=== PATIENT | female | born 1925 | race Caucasian/White ===

== ENCOUNTER 2016-08-04 15:32 | Emergency (ER) | payer MEDICARE, OTHER ==
[2016-08-04] MEDS ORDERED: LIDOCAINE 5% PATCH TOP ONE (17:06)
--- NOTE | 2016-08-04 17:06 | Emergency Department Record ---
History of Present Illness - General Chief Complaint: Back Pain/Injury Stated Complaint: BACK PAIN Time Seen by Provider: 08/04/16 16:56 Source: Patient, Family Mode of Arrival: Ambulatory Limitations: No limitations - History of Present Illness Initial Comments: 89 yo female presents with back pain. She has had a chronic history of back pain. She had been on Selah until recently when the Selah prescription was stopped by her PCP due to a concern about given some her family. Her last dose was about one week ago. She had been on them 6 years. She has not had any significant withdrawal symptoms. Her pain is mid back and long standing. No new falls or pains. She will be seeking a new PCP. MD Complaint: Back pain Onset/Timin -: Days(s) Similar Symptoms Previously: No Place: Home Radiation: None Severity scale (1-10): 8 Quality: Aching Consistency: Constant Improves With: None Worsens With: None Context: Unknown Associated Symptoms: Denies other symptoms - Related Data Home Medications Medication Instructions Recorded Confirmed Last Taken Ferrous Sulfate [Iron] 325 mg PO DAILY 08/04/16 08/04/16 Unknown Furosemide [Lasix] 40 mg PO DAILY 08/04/16 08/04/16 Unknown Lisinopril [Zestril] 5 mg PO DAILY 08/04/16 08/04/16 Unknown Potassium Chloride [Klor-Con] 10 meq PO DAILY 08/04/16 08/04/16 Unknown Previous Rx's Medication Instructions Recorded Lidocaine Patch [Lidoderm] 1 ea [facility] Q12H #10 patch 08/04/16 Allergies Allergy/AdvReac Type Severity Reaction Status Date / Time No Known Drug Allergies Allergy Verified 08/04/16 16:53 Travel Screening - Travel/Exposure Within Last 30 Days Have you traveled within the last 30 days?: No Review of Systems Constitutional: Denies: Chills, Fever, Malaise, Weakness Eyes: Denies: Eye discharge ENT: Denies: Congestion, Throat pain Respiratory: Denies: Cough Cardiovascular: Denies: Chest pain, Palpitations, Syncope Endocrine: Denies: Fatigue Gastrointestinal: Denies: Abdominal pain, Diarrhea, Nausea, Vomiting Genitourinary: Denies: Dysuria, Urgency Musculoskeletal: Reports: Arthralgia, Back pain. Denies: Joint swelling, Myalgia, Neck pain Skin: Denies: Bruising, Change in color, Rash Neurological: Denies: Headache Psychiatric: Denies: Anxiety Hematological/Lymphatic: Denies: Blood Clots, Easy bleeding, Easy bruising, Swollen glands Past Medical History - SOCIAL HISTORY Smoking Status: Never smoker Alcohol Use: None Drug Use: None - RESPIRATORY Hx Respiratory Disorders: No - CARDIOVASCULAR Hx Cardio Disorders: Yes Hx Edema: Yes Hx Hypertension: Yes - NEURO Hx Neuro Disorders: No - GI Hx GI Disorders: No - Hx Genitourinary Disorders: No - ENDOCRINE Hx Endocrine Disorders: No - MUSCULOSKELETAL Hx Musculoskeletal Disorders: Yes Hx Arthritis: Yes - PSYCH Hx Psych Problems: No - HEMATOLOGY/ONCOLOGY Hx Hematology/Oncology Disorders: Yes Hx Anemia: Yes Hx Blood Transfusions: Yes Hx Blood Transfusion Reaction: No Family Medical History Any Significant Family History?: No Physical Exam - General General Appearance: Alert, Oriented x3, Cooperative, No acute distress Limitations: No limitations - Head Head exam: Normal inspection - Eye Eye exam: Normal appearance - ENT ENT exam: Normal exam Ear exam: Normal external inspection Nasal Exam: Normal inspection Mouth exam: Normal external inspection Teeth exam: Normal inspection Throat exam: Normal inspection - Neck Neck exam: Normal inspection, Full ROM. negative: Tenderness - Respiratory Respiratory exam: Normal lung sounds bilaterally. negative: Respiratory distress - Cardiovascular Cardiovascular Exam: Regular rate, Normal rhythm, Normal heart sounds - GI/Abdominal GI/Abdominal exam: Soft. negative: Tenderness - Rectal Rectal exam: Deferred - exam: Deferred - Extremities Extremities exam: Normal inspection, Full ROM, Normal capillary refill. negative: Pedal edema, Tenderness - Back Back exam: Reports: Normal inspection, Full ROM, Paraspinal tenderness, Other ( scoliosis). Denies: Muscle spasm, Rash noted, Tenderness, Vertebral tenderness - Neurological Neurological exam: Alert, Normal gait, Oriented X3 - Psychiatric Psychiatric exam: Normal affect, Normal mood. negative: Anxious, Depressed - Skin Skin exam: Dry, Intact, Normal color, Warm Course Vital Signs 08/04/16 16:21 Temperature 97.7 F Pulse Rate [ 69 Pulse Ox Probe] Respiratory 12 Rate Blood Pressure 163/96 [Left Arm] Pulse Ox 95 - Reevaluation(s) Reevaluation #1: I reviewed the patient's letter from her doctor stopping the Selah Her MAPS demonstrated only prescriptions from her PCP We discussed non narcotic options 08/04/16 17:08 Disposition Disposition: Discharge Clinical Impression: Chronic Back Pain Qualifiers: Back pain location: low back pain Back pain laterality: unspecified Sciatica presence: without sciatica Qualified Code(s): M54.5 - Low back pain; G89.29 - Other chronic pain Disposition: Home, Self-Care Condition: (1) Good Instructions: Chronic Back Pain (ED) Additional Instructions: Call to get a new family doctor Return if you have uncontrolled pain, weak, nausea, or any new concerns Apply the Lidoderm patches for only 12 hours at a time then remove for 12 hours Prescriptions: Lidocaine Patch [Lidoderm] 1 ea [facility] Q12H #10 patch Forms: Patient Portal Access Time of Disposition: 17:11
== END 2016-08-04 17:40 | disposition home or self-care (01) ==
LOC: ER 15:32
DX: G89.29 Other chronic pain (principal); M54.5 Low back pain
CPT/HCPCS: 99283